=== PATIENT | female | born 1970 | race Caucasian/White ===

== ENCOUNTER → 2024-03-11 06:49 | Outpatient (REF) | payer OTHER, SELFPAY | LOC: MRI 3T 06:49 | PROVIDERS: ATTENDING PHYSICIAN Family Medicine | DX: R51.9 Headache, unspecified (principal); R42 Dizziness and giddiness | CPT/HCPCS: 70551 ==

== ENCOUNTER → 2024-04-03 07:09 | Outpatient (REF) | payer OTHER, SELFPAY | LOC: RAD 07:09 | PROVIDERS: ATTENDING PHYSICIAN Family Medicine | DX: R10.11 Right upper quadrant pain (principal) | CPT/HCPCS: 76700 ==

== ENCOUNTER 2024-07-08 06:07 | Day surgery (SDC) | payer BC, SELFPAY ==
[2024-06-26 11:38] LABS: Hematocrit 39.8 % (37.0-47.0); Hemoglobin 13.4 g/dL (12.0-16.0); Mean Corp Hgb Conc. 33.7 g/dL (33.0-37.0); Mean Corpuscular Hgb 30.2 pg (27.0-31.0); Mean Corpuscular Volume 89.8 fL (81.0-99.0); Mean Platelet Volume 11.3 fL (7.4-10.4); Platelet Count 295 10^3/uL (130-400); Red Blood Cell Count 4.43 10^6/uL (4.20-5.40); Red Cell Dist. Width 12.5 % (11.5-14.5); White Blood Cell Count 3.5 10^3/uL (4.8-10.8)
[2024-06-26 12:35] LABS: Blood Urea Nitrogen 13 mg/dl (7-17); Calcium 9.7 mg/dl (8.4-10.2); Carbon Dioxide 29 mmol/L (22-30); Chloride 99 mmol/L (98-107); Glucose 76 mg/dl (70-99); Potassium 4.5 mmol/L (3.5-5.1); Sodium 137 mmol/L (135-145); eGFR > 60.00
[2024-06-26 14:20] VITALS: BMI 24.7
[2024-07-08] VITALS (10 sets, daily range): BP systolic 132–157; BP diastolic 73–94; BMI 24.7
[2024-07-08] MEDS: TYLENOL 1000 MG PO (06:24)
[2024-07-08] MEDS: NORMOSOL-R/PLASMALYTE-A 1000 IV (06:43)
--- NOTE | 2024-07-08 06:57 | W.SUR.PREOP ---
Pre-Operative Surgical Note
-
I have examined this patient prior to the performance of the scheduled procedure.
The patient's condition is unchanged from the time of the current History and
Physical and the patient is able to undergo the scheduled procedure.
--- NOTE | 2024-07-08 06:57 | HP.FOC2 ---
Focused History & Physical
Chief Complaint
HPI:
Chief Complaint: Postprandial right upper quadrant pain
HPI / Indication for Planned Procedure: This is a 54-year-old female who presents with postprandial right upper quadrant pain, ultrasound consistent with gallstone disease. Will plan for laparoscopic cholecystectomy with cholangiogram today.
Relevant Past Medical History: Negative
Relevant Social History: Negative
Relevant Family History: Negative
Relevant Past Surgical History: Negative
Review of Systems
Review of Pertinent Systems: All Systems Negative
Medication
See Medication form for detailed medications: Yes
Medication List (including Herbals & OTC):
Macapause 2 cap PO NOON 07/01/24
Probiomed Women 1 cap PO QPM 07/01/24
acetaminophen 500 mg tablet 500 mg PO PRN PRN pain 07/01/24
ascorbic acid (vitamin C) 500 mg tablet (Vitamin C) 500 mg PO PRN PRN sickness 07/01/24
ibuprofen 200 mg tablet 200 mg PO PRN PRN pain 07/01/24
thyroid 15 mg PO .3 TIMES A WEEK 07/01/24
thyroid 60 mg PO DAILY 07/01/24
venlafaxine 37.5 mg tablet 37.5 mg PO NOON 07/01/24
Medications Reviewed: Yes
Allergies and Reactions
Patient has Allergies: No
Noted Allergies and Reactions:
Allergy/AdvReac Type Severity Reaction Status Date / Time
NKA - No Known Allergies Allergy Unknown Uncoded 07/08/24 06:19
Pertinent Physical Exam
All Other Systems: Negative
Head/Neck: Normal
Diagnosis / Assessment
This is a 54-year-old female who presents with postprandial right upper quadrant pain, ultrasound consistent with gallstone disease.
Plan / Procedure
Will plan for laparoscopic cholecystectomy with cholangiogram today.
Anesthesia/Sedation to be done by Anesthesia Provider: Yes
--- NOTE | 2024-07-08 08:40 | W.IMMPOSTOP ---
Surgical Immed Post Op Note
-
Primary Surgeon: Jose G Canada MD
Assisting Surgeon: None
Pre-op Diagnosis: Biliary colic
Post-op Diagnosis: Same
Procedure Performed: Laparoscopic cholecystectomy with cholangiogram
Anesthesia Type: General
Specimen / Cultures: Gallbladder and contents
Estimated Blood Loss: 3 cc
Complications: None
Operative Findings: Somewhat chronically inflamed gallbladder with adhesions over the gallbladder wall which were carefully lysed with sharp and electrocautery dissection. Critical view of safety obtained prior to a cholangiogram which demonstrated
no distal filling defects and otherwise normal biliary anatomy. Duct ligated with a clip followed by 0 PDS Endoloop.
--- NOTE | 2024-07-08 08:42 | OR.RPT ---
Operative Report
Operative Report
Patient Name: Dolly Thomason
: 1970
Date of Operation: 07/08/2024
Preoperative Diagnosis: Symptomatic Cholelithiasis
Postoperative Diagnosis: Same
Procedure(s):
Laparoscopic Cholecystectomy with Cholangiogram
Surgeon(s):
Dr. Canada
Relations Coordinator(s):
BRENDEN Rucker
Anesthesia: General
Estimated Blood Loss: 3 cc
Urine Output: None
Drains/Lines/Implants: None
Specimens:
1. Gallbladder and contents
HPI/Surgical Indications:
This is a 54year old female who presents with abdominal pain. Exam, labs and imaging are consistent with symptomatic cholelithiasis. Risks/Benefits/Alternatives were discussed at length, and the patient agreed to proceed with surgery.
Operative Findings: Somewhat chronically inflamed gallbladder with adhesions over the gallbladder wall which were carefully lysed with sharp and electrocautery dissection. Critical view of safety obtained prior to a cholangiogram which demonstrated
no distal filling defects and otherwise normal biliary anatomy. Duct ligated with a clip followed by 0 PDS Endoloop.
Procedure Description:
The patient was brought to the Operating Room and placed in the supine position. IV antibiotics were infused and sequential compression devices were confirmed to be on. Following uneventful induction of general endotracheal anesthesia, an
orogastric tube was placed. The abdomen was prepped and draped in the usual sterile fashion. The abdomen was entered using a open Sabino technique with a balloon 12 mm trochar. Pneumoperitoneum to 15 mmHg pressure was obtained without difficulty
and we confirmed that no injury had occurred during our entry. The patient was positioned in reverse trendelenberg and rotated with the right side up slightly. Three (3) 5mm trocars were then placed along the right subcostal margin. A locking
grasping forceps was placed on the fundus of the gallbladder where it was then retracted cephalad and to the right. Using appropriate grasping instruments, the peritoneum overlying the triangle of Calot was incised. The cystic duct/gallbladder
junction was identified, dissected circumferentially. The cystic artery was identified medially and was dissected circumferentially. A critical view was obtained. A clip was then placed on the cystic duct/gallbladder junction and an
intraoperative cholangiogram performed using fluoroscopy, which showed good flow of dye into the duodenum. There were no intra- or extrahepatic bile duct filling defects. The biliary anatomy appeared normal. Following completion of the
cholangiogram, the catheter was removed. Two clips were then placed proximally on the cystic duct and the duct divided. Two clips were placed proximally and one distally on the cystic artery, and the artery was divided. Remaining soft tissue
attachments of the gallbladder to the liver bed were then divided using electrocautery. There was no spillage of bile or stones. The gallbladder bed was inspected and excellent hemostasis was obtained. The gallbladder was extracted through the 12
mm trocar site using an endocatch bag. The abdomen was again irrigated and excellent hemostasis was assured. All remaining trocars were then removed and the pneumoperitoneum was evacuated. The 12 mm trocar site was closed using a figure of 8 of 0
PDS. All trocar sites were closed at the skin level using 4-0 Monocryl followed by Dermabond. Overall, the patient tolerated the procedure well and was taken to the Recovery Room postoperatively in stable condition.
Monalisa was the attending physician and performed the procedure with assistance of the PA above. The assistance of BRENDEN Rucker was required due to the complexity of the procedure. During the procedure Marielena assisted with retraction, resection, and
closure of the wound. I was present for all portions of the case, excluding skin closure.
Jose G Canada MD
== END 2024-07-08 10:50 | disposition home or self-care (01) ==
LOC: SDS 06:07
PROVIDERS: ATTENDING PHYSICIAN Surgery; FAMILY PHYSICIAN Family Medicine
DX: K80.10 Calculus of gallbladder with chronic cholecystitis without obstruction (principal)
CPT/HCPCS: 47563; 88304; 36415; 74300; 76000; 80048; 85027; 93005; A4300